=== PATIENT | male | born 1935 | race Caucasian/White ===

== ENCOUNTER 2019-12-07 17:02 | Inpatient (IN) | payer MEDICARE ==
[~2019-12-07] VITALS: Ht 182.9 cm; Wt 60.0 kg
[~2019-12-07 17:02] MED LIST: Prilosec Otc20 MG PO
[2019-12-07 18:32] LABS: International Normalized Ratio 1.18; Prothrombin Time Results 12.5 Sec (9.7-11.5)
[2019-12-07 18:32] LABS: Source, Urine Catheter
[2019-12-07 18:41] LABS: Bilirubin, Urine Neg (Neg); Blood, Urine 5+ (Neg); Glucose Qualitative, Urine 1+ (Neg); Ketones, Urine 4+ (Neg); Leukocyte Esterase, Urine 1+ (Neg); Nitrite, Urine Neg (Neg); Protein, Urine 2+ (Neg); Specific Gravity, Urine 1.015 (1.003-1.022); Urobilinogen, Urine 1+ (Normal)
[2019-12-07 18:42] LABS: Albumin, Blood 3.4 g/dL (3.4-5.0); Albumin/Globulin Ratio 0.9 (0.8-1.8); Bilirubin, Total 1.1 mg/dL (0.1-1.0); Bun/Creatinine Ratio 32.7 (12.0-20.0); Calcium, Blood 9.7 mg/dL (8.5-10.1); Creatinine, Blood 1.56 mg/dL (0.60-1.20); Globulin, Blood 3.6 g/dL (2.2-4.0); Magnesium, Blood 2.6 mg/dL (1.6-2.4); Potassium, Blood 2.7 mmol/L (3.5-5.5); Troponin I 0.025 ng/mL (0.000-0.040)
[2019-12-07 18:47] LABS: Appearance, Urine Hazy (Clear); Color, Urine Amber (P-Yellow)
[2019-12-07 18:50] LABS: Red Blood Cells, Urine 25-50 /hpf (0-2); Squamous Epithelial Cells Not Seen /hpf (Few)
[2019-12-07 18:51] LABS: Bacteria Few /hpf
[2019-12-07 19:30] LABS: Creatine Kinase MB Index 1.6 (0.0-4.0)
[2019-12-07 19:40] LABS: BASOPHILS ABSOLUTE AUTO 0.02 K/mm3 (0.00-0.23); BASOPHILS PERCENT AUTO 0 % (0-2); EOSINOPHILS PERCENT AUTO 0 % (0-6); Hematocrit 40.1 % (37.0-53.0); Hemoglobin 14.2 g/dL (13.5-17.5); IMMATURE GRAN ABSOLUTE AUTO 0.03 K/mm3 (0.00-0.10); IMMATURE GRAN PERCENT AUTO 0 % (0-1); LYMPHOCYTES ABSOLUTE AUTO 0.44 K/mm3 (0.84-5.20); LYMPHOCYTES PERCENT AUTO 5 % (21-46); MONOCYTES ABSOLUTE AUTO 0.71 K/mm3 (0.16-1.47); MONOCYTES PERCENT AUTO 8 % (4-13); Mean Corpuscular HGB Conc 35.4 g/dL (31.5-36.5); Mean Corpuscular Volume 99 fL (80-100); Mean Platelet Volume 10.5 fL (9.1-12.4); NEUTROPHILS ABSOLUTE AUTO 7.47 K/mm3 (1.96-9.15); NEUTROPHILS PERCENT AUTO 86 % (41-73); Platelet Count 124 K/mm3 (150-400); RDW Coefficient Variation 13.6 % (11.7-14.2); RDW Standard Deviation 47.9 fL (35.1-46.3); Red Blood Cell Count 4.06 M/mm3 (4.30-5.90); White Blood Cell Count 8.67 K/mm3 (4.00-11.30)
[2019-12-08 04:28] LABS: BASOPHILS ABSOLUTE AUTO 0.02 K/mm3 (0.00-0.23); BASOPHILS PERCENT AUTO 0 % (0-2); EOSINOPHILS PERCENT AUTO 0 % (0-6); Hematocrit 37.7 % (37.0-53.0); Hemoglobin 13.1 g/dL (13.5-17.5); IMMATURE GRAN ABSOLUTE AUTO 0.02 K/mm3 (0.00-0.10); IMMATURE GRAN PERCENT AUTO 0 % (0-1); LYMPHOCYTES ABSOLUTE AUTO 0.31 K/mm3 (0.84-5.20); LYMPHOCYTES PERCENT AUTO 4 % (21-46); MONOCYTES ABSOLUTE AUTO 0.64 K/mm3 (0.16-1.47); MONOCYTES PERCENT AUTO 8 % (4-13); Mean Corpuscular HGB 34.9 pg (26.0-34.0); Mean Corpuscular HGB Conc 34.7 g/dL (31.5-36.5); Mean Corpuscular Volume 101 fL (80-100); Mean Platelet Volume 11.4 fL (9.1-12.4); NEUTROPHILS ABSOLUTE AUTO 6.71 K/mm3 (1.96-9.15); NEUTROPHILS PERCENT AUTO 87 % (41-73); Platelet Count 141 K/mm3 (150-400); RDW Coefficient Variation 13.6 % (11.7-14.2); RDW Standard Deviation 49.8 fL (35.1-46.3); Red Blood Cell Count 3.75 M/mm3 (4.30-5.90)
[2019-12-08 04:56] LABS: Bun/Creatinine Ratio 32.7 (12.0-20.0); Calcium, Blood 8.5 mg/dL (8.5-10.1); Creatinine, Blood 1.59 mg/dL (0.60-1.20); Potassium, Blood 3.3 mmol/L (3.5-5.5)
--- NOTE | 2019-12-08 07:49 | NUR ---
SUMMARY PT ADMITTED WITH AMS, HE IS ORIENTED TO SELF, SPEECH IS MOSTLY GARBLED, HE IS ABLE TO COMMUNICATE IN SHORT SENTENCES, PT STARTS TO BE COMBATIVE WHEN CARE IS PROVIDED BUT HE WILL CALM DOWN & COOPERATE AFTER CARE IS EXPLAINED AND REORIENTATION IS PROVIDED. NEGATIVE CIWA AT THIS TIME. PT IS ON ROOM AIR, RESP UNLABORED, DARK, DRIED BLOOD NOTED IN PT'S NOSE/MOUTH & FACE. ORAL CARE WAS PROVIDED PER PT'S TOLERANCE, HE DID ACT LIKE IT WAS PAINFUL AT TIMES, UNABLE TO VISUALIZE ANY WOUNDS IN MOUTH DURING ASSESSMENT. MULTIPLE BRUISES NOTED TO BODY, PICTURES WERE NOT OBTAINED DUE TO THE CAMERA NOT WORKING, THIS WAS REPORTED TO THE DAY RN, RIGHT HIP FX PER IMAGING REPORTS, RL ELEVATED ON PILLOW, PEDAL PULSE INTACT, CIRC WNL, PAIN MANAGED PER EMAR X1. NS INFUSING @ 100 ML/HR. BED IN LOW POSITION, BED ALARM ON FOR SAFETY, ROOM CAMERA IS ON. REPORT GIVEN TO DAY RN.
[2019-12-08 12:53] LABS: U Amphetamine Screen Not Detected; U Barbituate Screen Not Detected; U Benzodiazapine Screen Not Detected; U Buprenorphine Screen Not Detected; U Cannabinoids Screen Not Detected; U Cocaine Screen Not Detected; U Methadone Screen Not Detected; U Methamphetamine Screen Not Detected; U Opiates Screen Not Detected; U Oxycodone Screen Not Detected; U Phencyclidine Screen Not Detected; U Propoxyphene Screen Not Detected
--- NOTE | 2019-12-08 19:27 | NUR ---
SHIFT SUMMARY: PT MORE ALERT THIS SHIFT, STILL CONFUSED AND AGITATED, ABLE TO ANSWER QUESTIONS BUT SOMETIMES INAPPROPRIATE. PER DAUGHTER PT IS USUALLY ALERT TO SELF AND TO WHAT'S GOING ON BUT ALSO FORGETFUL AND MAY SOMETIMES REPEAT HIMSELF. PT WAS SEEN BY DR HANSON TODAY REGARDING RIGHT HIP FX, PLAN TO RE-EVALUATE PT AGAIN IN THE MORNING TO DECIDE WHEN TO DO THE SURGERY. CIWA HAS BEEN DONE COUPLE TIMES FOR THE SHIFT, TREMORS WITH MOVEMENTS NOTED PT DENIED NAUSEA AND THIS WAS ADDRESSED TO DR CAMARA WANTED TO TRY ATIVAN FOR NOW, WTIVAN GIVEN X 1 AND WAS EFFECTIVE. TOX SCREEN ALSO CAME BACK NEGATIVE. PAIN MEDS GIVEN X2 FOR THE SHIFT, PT PARTICIPATED WITH THERAPY. PT TO REMAIN NPO FOR NOW, ORAL CLEANING AND SUCTIONING DONE OFTEN. PT RECEIVED A BED BATH WELL. PT CURRENTLY NOW RESTING IN BED REPORT GIVEN TO SOCIAL WORK MSW NURSE
[2019-12-09 03:37] LABS: BASOPHILS ABSOLUTE AUTO 0.01 K/mm3 (0.00-0.23); BASOPHILS PERCENT AUTO 0 % (0-2); EOSINOPHILS PERCENT AUTO 0 % (0-6); Hematocrit 31.7 % (37.0-53.0); Hemoglobin 10.8 g/dL (13.5-17.5); IMMATURE GRAN ABSOLUTE AUTO 0.01 K/mm3 (0.00-0.10); IMMATURE GRAN PERCENT AUTO 0 % (0-1); LYMPHOCYTES ABSOLUTE AUTO 0.55 K/mm3 (0.84-5.20); LYMPHOCYTES PERCENT AUTO 9 % (21-46); MONOCYTES ABSOLUTE AUTO 0.42 K/mm3 (0.16-1.47); MONOCYTES PERCENT AUTO 7 % (4-13); Mean Corpuscular HGB 35.9 pg (26.0-34.0); Mean Corpuscular HGB Conc 34.1 g/dL (31.5-36.5); Mean Corpuscular Volume 105 fL (80-100); Mean Platelet Volume 10.5 fL (9.1-12.4); NEUTROPHILS ABSOLUTE AUTO 5.07 K/mm3 (1.96-9.15); NEUTROPHILS PERCENT AUTO 84 % (41-73); Platelet Count 127 K/mm3 (150-400); RDW Coefficient Variation 14.6 % (11.7-14.2); Red Blood Cell Count 3.01 M/mm3 (4.30-5.90); White Blood Cell Count 6.06 K/mm3 (4.00-11.30)
[2019-12-09 04:00] LABS: Albumin, Blood 2.3 g/dL (3.4-5.0); Anion Gap 8 mmol/L (6-16); Blood Urea Nitrogen 36 mg/dL (8-24); CO2, Blood 21 mmol/L (21-32); Calcium, Blood 7.8 mg/dL (8.5-10.1); Chloride, Blood 116 mmol/L (98-108); Creatinine, Blood 1.03 mg/dL (0.60-1.20); Glomerular Filtration Rate >60 (60-); Glucose, Blood 96 mg/dL (70-99); Phosphorus, Blood 2.6 mg/dL (2.5-4.9); Potassium, Blood 3.6 mmol/L (3.5-5.5); Sodium, Blood 145 mmol/L (136-145)
[2019-12-09 04:10] LABS: CPK Creatine Kinase 1698 U/L (39-308)
--- NOTE | 2019-12-09 06:46 | NUR ---
PT TO RADIOLOGY FOR CT SCAN
--- NOTE | 2019-12-09 09:09 | NUR ---
SUMMARY NO ACUTE CHANGES NOTED THROUGH THE NIGHT. PT WILL PARTIALLY CALL OUT OCCASIONALLY AND IT APPEARS TO BE LIKE HE CRYING BUT HE IS UNABLE TO VOICE ANY REQUESTS, QUICKLY FALLS BACK TO SLEEP, DOES NOT APPEAR TO BE ANXIOUS SHORTLY AFTERWARDS. VSS ARE STABLE, ON ROOM AIR, MILD EDEMA TO RIGHT THIGH, Q2 TURNS, GODINEZ PATENT, PT TO CT THIS AM, 25 MCG IV FENTANYL GIVEN PRIOR TO TRANSPORT, ORAL CARE PROVIDED, NS INFUSED PER EMAR. REPORT GIVEN TO DAY RN. CALL LIGHT IN REACH.
--- NOTE | 2019-12-09 15:39 | NUR ---
SECOND TEMP TAKEN PER OR RNS REQUEST DUE TO PATIENTS COUGHING AND FOLLOW UP SINCE FIRST TEMP TAKEN WICH WAS 99.9, SECOND TEMP 100.3
--- NOTE | 2019-12-09 15:45 | NUR ---
PATIENT RETURNED TO ROOM PCU 3 FLOOR RN NOTIFIED OF SURGERY BEING CANCELLED
--- NOTE | 2019-12-09 18:37 | NUR ---
PT SUMMARY: PT ALERT BUT CONFUSED/AGITATED AT MOST TIMES, ASKS UNRELATED QUESTIONS OFTEN AND REPEATS HIMSELF. PT IS CURRENTLY ON BED REST AND STRICT NPO D/T SWALLOWING ISSUES. PT SCHEDULED TO DO ORTHO SURGERY TODAY BUT WAS CALLED OFF PT HAD LOW GRADE TEMP 99-100F PER REPORT AND WAS COUGHING WITH CRACKLES PER LUNG SOUNDS. PT TEMP UPON RECEIVING BACK IN THE ROOM WAS 99, FENTANYL WAS GIVEN TEMP WENT DOWN TO 98.3, PT WAS C/O OF RIGHT HIP PAIN WELL. DR CAMARA ORDERED CHEST XRAY STAT SHOWS NO SIGNS OF PNEUMONIA, LASIX WAS ORDERED, PT BREATHING WAS A LOT BETTER WITH ADEQUATE AMOUNT OF URINE OUTPUT ON THE CATHETER. DAUGHTER WAS CONTACTED WITH PT'S CURRENT STATUS AND IS AWARE ABOUT THE CANCELLED SURGERY. ATIVAN GIVEN X1 PT HAS BEEN PULLING TELE BOX OFF AND IS CONFUSED/AGITATED. ORAL CARE AND SUCTIONING DONE OFTEN TO CLEAR MUCUS OUT OF THROAT. PT CURRENTLY IN BED WITH CALL LIGHTS WITHIN REACH BED ALARM IS ON, WILL GIVE REPORT TO ONCOMING SHIFT.
--- NOTE | 2019-12-09 22:35 | NUR ---
12/08 @19:35 PATIENT CONFUSED, PULLING AT GODINEZ CATHETER, HAD PREVIOUSLY PULLED ON IV. BOTH LINES OK, DID PERFORM JEANNETTE CARE. CALLED SO ADAMES, OBTAINED ORDER FOR SOFT BILAT WRIST RESTRAINTS TO KEEP PATIENT FROM HARMING SELF. NON-REDIRECTABLE. WILL CALL FAMILY WHEN ABLE TO EDUCATE, PATIENT TOO CONFUSED TO UNDERSTAND PURPOSE. NO C/O PAIN. WILL CONTINUE TO MONITOR.
[2019-12-10 04:19] LABS: BASOPHILS ABSOLUTE AUTO 0.01 K/mm3 (0.00-0.23); BASOPHILS PERCENT AUTO 0 % (0-2); EOSINOPHILS ABSOLUTE AUTO 0.01 K/mm3 (0.00-0.68); EOSINOPHILS PERCENT AUTO 0 % (0-6); Hematocrit 30.5 % (37.0-53.0); IMMATURE GRAN ABSOLUTE AUTO 0.01 K/mm3 (0.00-0.10); IMMATURE GRAN PERCENT AUTO 0 % (0-1); LYMPHOCYTES ABSOLUTE AUTO 0.85 K/mm3 (0.84-5.20); LYMPHOCYTES PERCENT AUTO 14 % (21-46); MONOCYTES ABSOLUTE AUTO 0.53 K/mm3 (0.16-1.47); MONOCYTES PERCENT AUTO 9 % (4-13); Mean Corpuscular HGB 34.7 pg (26.0-34.0); Mean Corpuscular HGB Conc 32.8 g/dL (31.5-36.5); Mean Corpuscular Volume 106 fL (80-100); Mean Platelet Volume 10.8 fL (9.1-12.4); NEUTROPHILS ABSOLUTE AUTO 4.57 K/mm3 (1.96-9.15); NEUTROPHILS PERCENT AUTO 76 % (41-73); Platelet Count 121 K/mm3 (150-400); RDW Coefficient Variation 14.4 % (11.7-14.2); RDW Standard Deviation 55.1 fL (35.1-46.3); Red Blood Cell Count 2.88 M/mm3 (4.30-5.90); White Blood Cell Count 5.98 K/mm3 (4.00-11.30)
[2019-12-10 04:37] LABS: Magnesium, Blood 2.5 mg/dL (1.6-2.4)
[2019-12-10 04:38] LABS: Albumin, Blood 2.2 g/dL (3.4-5.0); Anion Gap 7 mmol/L (6-16); Blood Urea Nitrogen 18 mg/dL (8-24); Bun/Creatinine Ratio 21.9 (12.0-20.0); CO2, Blood 27 mmol/L (21-32); Calcium, Blood 7.7 mg/dL (8.5-10.1); Chloride, Blood 114 mmol/L (98-108); Creatinine, Blood 0.82 mg/dL (0.60-1.20); Glomerular Filtration Rate >60 (60-); Glucose, Blood 103 mg/dL (70-99); Phosphorus, Blood 2.3 mg/dL (2.5-4.9); Potassium, Blood 2.6 mmol/L (3.5-5.5); Sodium, Blood 148 mmol/L (136-145)
--- NOTE | 2019-12-10 05:41 | NUR ---
SHIFT SUMMARY PATIENT SLEPT WELL THROUGH NIGHT. CIWA, ALCOHOL WITHDRAWL SYMPTOMS RELIEVED WITH PRN ATIVAN. DID HAVE 1 SCORE OF 22, BUT WAS MORE EPISODIC, WAS NOT CONSISTENTLY AGITATED/RESTLESS, BUT WOULD GET TO A 22 PRETTY QUICKLY FROM A LOW SCORE, GAVE 2MG IVP ATIVAN, SLEPT FOR ABOUT 5 HOURS. TURNED FREQUENTLY, NOT MUCH DISCOMFORT NOTED, RESOLVED WITH REST. ASSESSMENT IS CHARTED. VSS. WILL CONTINUE TO MONITOR.
--- NOTE | 2019-12-10 09:55 | NUR ---
PT SLEEPING, OCCASIONLLY REPOSITIONING HIS ARM. RESP EVEN AND UNLABORED.
--- NOTE | 2019-12-10 11:22 | NUR ---
PT TO DAY SURGERY AT THIS TIME
--- NOTE | 2019-12-10 12:13 | NUR ---
PT TRANSFERED TO [facility] VIA BED FROM FLOOR. History, Chart, Medications and Allergies reviewed before start of procedure. Lungs clear T/O to Auscultation. Patient confirms NPO status and agrees with scheduled surgery.
--- NOTE | 2019-12-10 13:43 | NUR ---
REPORT TO DRAKE HAMLIN RN TO ASSUME CARE OF PATIENT WHEN PT TRANSFERS FROM SURGERY.
--- NOTE | 2019-12-10 18:00 | NUR ---
REPORT RECEIVED FROM MANAGER MEDICAL DEVICE KIM AT ABOUT 1351
--- NOTE | 2019-12-10 18:01 | NUR ---
POST OP: REPORT RECEIVED FROM PTA. PT TO UNIT AT ABOUT 1515. UPON ASSESSMENT PT IS SLEEPING, VSS. PT OPENS EYES TO VOICE, BUT FALLS BACK TO SLEEP EASILY. TELE PLACED AND VERIFIED, IS NSR AT 88 PER YUNG PSYCHOLOGICAL ANTHROPOLOGIST. DRESSING AT R HIP CDI, CMS INTACT. GODINEZ DRAINING. CONTINIOUS BI OX IN PLACE. PT SHOWS NO SYMPTOMS OF ETOH WITHDRAWAL. BED ALARM ON FOR SAFETY. WILL CTM.
--- NOTE | 2019-12-10 22:00 | NUR ---
TELEMETRY LEADS REPLACED, GOWN/BIOX PUT BACK ON, AND PT REPOSITIONED SELF FOR COMFORT. SAFETY MEASURES IN PLACE. WILL CONTINUE TO MONITOR.
[2019-12-11 04:26] LABS: BASOPHILS PERCENT AUTO 0 % (0-2); EOSINOPHILS PERCENT AUTO 0 % (0-6); Hematocrit 29.2 % (37.0-53.0); Hemoglobin 9.7 g/dL (13.5-17.5); IMMATURE GRAN ABSOLUTE AUTO 0.03 K/mm3 (0.00-0.10); IMMATURE GRAN PERCENT AUTO 0 % (0-1); LYMPHOCYTES ABSOLUTE AUTO 0.37 K/mm3 (0.84-5.20); LYMPHOCYTES PERCENT AUTO 5 % (21-46); MONOCYTES ABSOLUTE AUTO 0.62 K/mm3 (0.16-1.47); MONOCYTES PERCENT AUTO 8 % (4-13); Mean Corpuscular HGB 35.3 pg (26.0-34.0); Mean Corpuscular HGB Conc 33.2 g/dL (31.5-36.5); Mean Corpuscular Volume 106 fL (80-100); Mean Platelet Volume 10.3 fL (9.1-12.4); NEUTROPHILS ABSOLUTE AUTO 6.48 K/mm3 (1.96-9.15); NEUTROPHILS PERCENT AUTO 86 % (41-73); Platelet Count 131 K/mm3 (150-400); RDW Coefficient Variation 14.4 % (11.7-14.2); RDW Standard Deviation 56.2 fL (35.1-46.3); Red Blood Cell Count 2.75 M/mm3 (4.30-5.90)
[2019-12-11 04:52] LABS: Magnesium, Blood 2.1 mg/dL (1.6-2.4)
[2019-12-11 04:54] LABS: Albumin, Blood 2.2 g/dL (3.4-5.0); Anion Gap 5 mmol/L (6-16); Blood Urea Nitrogen 12 mg/dL (8-24); Bun/Creatinine Ratio 19.5 (12.0-20.0); CO2, Blood 27 mmol/L (21-32); Calcium, Blood 7.8 mg/dL (8.5-10.1); Chloride, Blood 113 mmol/L (98-108); Creatinine, Blood 0.62 mg/dL (0.60-1.20); Glomerular Filtration Rate >60 (60-); Glucose, Blood 146 mg/dL (70-99); Phosphorus, Blood 2.7 mg/dL (2.5-4.9); Potassium, Blood 3.8 mmol/L (3.5-5.5); Sodium, Blood 145 mmol/L (136-145)
--- NOTE | 2019-12-11 06:23 | NUR ---
SHIFT SUMMARY LYING SUPINE IN BED WITH EYES CLOSED. AAO X3, CRUZ, FOLLOWS ALL COMMANDS. PAIN MANAGED WITH IVP DILAUDED. INDEPENDENT IN THE ROOM. DENIES FURTHER NEEDS OR WANTS AT THIS TIME. SAFETY MEASURES IN PLACE. WILL GIVE HAND OFF TO ONCOMING SHIFT USING SBAR DURING BEDSIDE REPORT.
--- NOTE | 2019-12-11 06:29 | NUR ---
SHIFT SUMMARY LYING IN LOW FOWLERS WITH EYES CLOSED. AAO X SELF ONLY, CRUZ, FOLLOWS ALL COMMANDS. INTERMITTEN CONFUSION WITH TREMMORS NOTED, TREATED WITH PRN ATIVAN. RIGHT HIP SURGICAL SITE COVERED BY GAUZE AND FOAM TAPE IS C/D/I. IS ABLE TO MOVE KNEE, ANKLE, AND TOES BILATERALLY. DENIES FURTHER NEEDS OR WANTS AT THIS TIME. SAFETY MEASURES IN PLACE. WILL GIVE HAND OFF TO ONCOMING SHIFT USING SBAR DURING BEDSIDE REPORT.
--- NOTE | 2019-12-11 12:51 | NUR ---
PT TO BE STRICTLY NPO PER ST, DR. CAMARA NOTIFIED IF SHE WANTS TO CHANGE METOPROLOL TO IV AND IF PT NEEDS FURTHER ANTICOAGULATION, NO NEW ORDERS RECEIVED, PT IS A LITTLE MORE AWAKE, ALERT ANSWERS QUESTIONS APPOPRIATELY, UNABLE TO WORK W/ PT/OT THIS AM, ICE PACK APPLIED TO R HIP, R HIP DSG CHANGED BY DR. HANSON THIS AM, CONT. TO MONITOR FOR ANY CHANGES.
--- NOTE | 2019-12-11 13:25 | NUR ---
ATTEMPTED TO DO ORAL CARE USING SUCTION AND MANUAL BUT PT IS REFUSING, TURNING HEAD AWAY, PULLING MOUTH SWAB AWAY AND BECOMING COMBATIVE.
--- NOTE | 2019-12-11 15:23 | NUR ---
REFUSED ORAL CARE AT THIS TIME, PT BECOMING CONFUSED, ORIENTED TO SELF, PULLING AT IV LINES AND GOWN, NOTICED TO HAVE MORE MOIST NPC, DR. CAMARA AWARE, PRIVATE BANKER CONCERNED ABOUT PT NOT HAVING ANY SUPPLEMENTAL NUTRITION AT THIS TIME, DR. CAMARA ALSO NOTIFIED, NO NEW ORDERS RECEIVED, CONT. TO MONITOR FOR ANY CHANGES.
[2019-12-12 04:50] LABS: Hematocrit 34.7 % (37.0-53.0); Hemoglobin 11.4 g/dL (13.5-17.5); Mean Corpuscular HGB 35.1 pg (26.0-34.0); Mean Corpuscular HGB Conc 32.9 g/dL (31.5-36.5); Mean Corpuscular Volume 107 fL (80-100); Mean Platelet Volume 11.3 fL (9.1-12.4); NRBC ABSOLUTE 0.02 K/mm3 (0.00-0.02); NRBC Auto 0.4 /100 WBC (0.0-0.2); Platelet Count 166 K/mm3 (150-400); RDW Coefficient Variation 14.5 % (11.7-14.2); RDW Standard Deviation 56.2 fL (35.1-46.3); Red Blood Cell Count 3.25 M/mm3 (4.30-5.90); White Blood Cell Count 5.28 K/mm3 (4.00-11.30)
[2019-12-12 05:58] LABS: Albumin, Blood 2.2 g/dL (3.4-5.0); Anion Gap 4 mmol/L (6-16); Blood Urea Nitrogen 11 mg/dL (8-24); Bun/Creatinine Ratio 22.9 (12.0-20.0); CO2, Blood 29 mmol/L (21-32); Calcium, Blood 7.7 mg/dL (8.5-10.1); Chloride, Blood 110 mmol/L (98-108); Creatinine, Blood 0.48 mg/dL (0.60-1.20); Glomerular Filtration Rate >60 (60-); Glucose, Blood 106 mg/dL (70-99); Phosphorus, Blood 2.4 mg/dL (2.5-4.9); Potassium, Blood 3.7 mmol/L (3.5-5.5); Sodium, Blood 143 mmol/L (136-145)
--- NOTE | 2019-12-12 06:40 | NUR ---
POD 2 S/P R EUGENIO HIP REPAIR. PT VSS, HR SINUS TACH 90'S PER TELE MONITOR. DRESSING INTACT, NO CHANGES IN DRNG OR SWELLING. CIWA MAX 13, PT MEDICATED W/1MG ATIVAN W/NOTED EFFECTS. PT REMAINS CONFUSED, AGITATED AND RESTLESS, UNABLE TO MAKE NEEDS KNOWN. PT NPO PER ORDERS, IVF CONT. ORAL CARE PROVIDED OFTEN PT ALEK, NO GAG REFLEX NOTED. PT REPOSITIONED FREQ, DOES SHIFT SELF SLIGHTLY. BED ALARM ON FOR SAFETY. WILL CONT TO MONITOR UNTIL REP GIVEN TO ONCOMING RN.
--- NOTE | 2019-12-12 09:19 | NUR ---
12/12/19 0919 Kenia Bennett VERIFICATIONS: EDIT CHART.
--- NOTE | 2019-12-12 17:55 | NUR ---
SUMMARY PT MORE ALERT TODAY, OOB TO RECLINER CHAIR TODAY W/ PT/OT, CONTIUES TO BE NPO, MANUAL ORAL CARE DONE TODAY, LASIX X1 TODAY, TPN STARTED, CONTINUES TO HAVE MOIST, NPC DR. CAMARA AWARE, PULLS AT TELE WIRES AND GOWN OCCASSIONALLY,APPEARS TO BE LESS ANXIOUS TODAY THAN YESTERDAY, CONFUSED AND NOT ORIENTED TODAY, PT REORIENTED T/O SHIFT, ASKING "WHAT HAPPENED TO ME?" SPEECH CONTINUES TO BE GARBLED BUT MORE COMPREHENSIBLE TODAY, NO ACUTE CHANGES THIS SHIFT.
[2019-12-13 06:04] LABS: Hematocrit 30.3 % (37.0-53.0); Hemoglobin 10.2 g/dL (13.5-17.5); Mean Corpuscular HGB 35.4 pg (26.0-34.0); Mean Corpuscular HGB Conc 33.7 g/dL (31.5-36.5); Mean Corpuscular Volume 105 fL (80-100); Mean Platelet Volume 10.7 fL (9.1-12.4); Platelet Count 145 K/mm3 (150-400); RDW Coefficient Variation 13.9 % (11.7-14.2); RDW Standard Deviation 53.1 fL (35.1-46.3); Red Blood Cell Count 2.88 M/mm3 (4.30-5.90); White Blood Cell Count 5.21 K/mm3 (4.00-11.30)
[2019-12-13 06:25] LABS: Anion Gap 4 mmol/L (6-16); Blood Urea Nitrogen 13 mg/dL (8-24); Bun/Creatinine Ratio 20.5 (12.0-20.0); CO2, Blood 31 mmol/L (21-32); Calcium, Blood 7.7 mg/dL (8.5-10.1); Chloride, Blood 103 mmol/L (98-108); Creatinine, Blood 0.64 mg/dL (0.60-1.20); Glomerular Filtration Rate >60 (60-); Glucose, Blood 98 mg/dL (70-99); Phosphorus, Blood 3.3 mg/dL (2.5-4.9); Potassium, Blood 3.5 mmol/L (3.5-5.5); Sodium, Blood 138 mmol/L (136-145); Triglycerides 92 mg/dL (30-160)
--- NOTE | 2019-12-13 06:36 | NUR ---
SHIFT SUMMARY: YESENIA IS ALERT. HIS SPEECH IS GARBELED AND, AT TIMES, NONSENSICAL. OCCASIONALLY, HE IS ABLE TO BE UNDERSTOOD. IV TO L AC PATENT, PPN INFUSING. GODINEZ DRAINING DARK, YELLOW URINE. HE IS ADVERSE TO BEING MOVED. CIWA Q4 THIS SHIFT. ATIVAN GIVEN X 2. ORAL CARE DONE, MOUTH WITH SIGNIFICANT SLOUGHING. TELE IN PLACE, ALTHOUGH YESENIA PULLS AT THE LEADS FREQUENTLY. FENTANYL FOR PAIN. HE IS STRICT NPO, SUCTIONING WITH ORAL CARE. HE DOES NOT USE HIS CALL LIGHT. PAS AND ANJELICA HOSE IS PLACE. CONTINUOUS PULSE OX IN PLACE. DRESSINGS C/D&I. WILL REPORT TO DAY SHIFT RN.
--- NOTE | 2019-12-13 15:32 | NUR ---
SHIFT SUMMARY NO ACUTE CHANGES THIS SHIFT. PT DID HAVE SOME HTN THIS AFTERNOON, BUT IS RECEIVING SCHEDULED LOPRESSOR AND IS TRENDING DOWN. TELE IN PLACE RUNNING IN SINUS. PT DOES GET ANXIOUS OCCASSIONALLY. CIWA HAS BEEN AROUND 8. 1MG IV ATIVAN GIVEN PER ORDERS. PT DID FAIL SPEECH THERAPY AGAIN. REMAINS NPO AND PPN STILL INFUSING PER ORDERS. PT STILL HAVING GARBLED SPEECH, BUT DOES OCCASSIONALLY SPEAK CLEAR SHORT PHRASES. PT DID REPORT RIGHT HIP PAIN AND RECEIVED 25MCG IV FENTANYL WHICH SEEMS TO BE EFFECTIVE. AQUACEL DRESSING TO HIP REMAINS CDI. PT DID HAVE A FULL BEDBATH TODAY AND HAS BEEN REPOSITIONED TOLERATED. ORAL CARE PER ORDERS. BED ALARM IN PLACE R/T TO CONFUSION FOR SAFETY. CALL LIGHT WITHIN REACH.
--- NOTE | 2019-12-13 17:04 | NUR ---
RECIEVED REPORT FROM OTHER RN [place]., THIS RN TAKING OVER CARE AT THIS TIME.
--- NOTE | 2019-12-14 04:48 | NUR ---
SHIFT SUMMARY: ANISHA AROUSES EASILY, IS ORIENTED TO SELF. HE IS COMBATIVE WITH CARE AT TIMES. HE DOES DISPLAY PAIN BEHAVIOR WITH MOVEMENT. PPN RUNNING TO 22G IN R FA. ORAL CARE AND REPOSITIONING TOLERATED. COCCYX REDDENED. STRICT NPO. GODINEZ PATENT. HE DOES NOT USE HIS CALL LIGHT. VSS. NO ACUTE EVENTS OVERNIGHT. WILL REPORT TO DAY SHIFT RN.
[2019-12-14 05:11] LABS: Hematocrit 26.6 % (37.0-53.0); Hemoglobin 9.1 g/dL (13.5-17.5); Mean Corpuscular HGB 35.5 pg (26.0-34.0); Mean Corpuscular HGB Conc 34.2 g/dL (31.5-36.5); Mean Corpuscular Volume 104 fL (80-100); Mean Platelet Volume 10.8 fL (9.1-12.4); Platelet Count 156 K/mm3 (150-400); RDW Coefficient Variation 13.9 % (11.7-14.2); Red Blood Cell Count 2.56 M/mm3 (4.30-5.90); White Blood Cell Count 5.82 K/mm3 (4.00-11.30)
[2019-12-14 05:42] LABS: Albumin, Blood 1.8 g/dL (3.4-5.0); Anion Gap 6 mmol/L (6-16); Blood Urea Nitrogen 15 mg/dL (8-24); Bun/Creatinine Ratio 25.5 (12.0-20.0); CO2, Blood 27 mmol/L (21-32); Calcium, Blood 7.4 mg/dL (8.5-10.1); Chloride, Blood 101 mmol/L (98-108); Creatinine, Blood 0.59 mg/dL (0.60-1.20); Glomerular Filtration Rate >60 (60-); Glucose, Blood 98 mg/dL (70-99); Phosphorus, Blood 3.2 mg/dL (2.5-4.9); Potassium, Blood 3.9 mmol/L (3.5-5.5); Sodium, Blood 134 mmol/L (136-145)
--- NOTE | 2019-12-14 09:45 | NUR ---
DR CAMARA HERE TO SEE PT. DISCUSSED BOWEL CARE.
--- NOTE | 2019-12-14 16:47 | NUR ---
SHIFT SUMMARY PT BEEN NPO. PT HAS GODINEZ IN PLACE. PT WORKED WITH THERAPY AND WAS NOT ABLE TO GET UP TO CHAIR. PT DID HAVE BM TODAY. PT BEEN REPOSITIONED MULT TIMES TODAY. MEPILEX WAS PLACED TO BOTTOM IT WAS SLIGHTLY REDDENNED BUT NO OPEN SORES NOTED. NO SORES TO HEELS. HEELS BEEN FLOATED. ALARM IN PLACE. MOUTH CARE COMPLETED MULT TIMES. NO S/SX OF W/D NOTED TODAY. PT CONT TO BE CONFUSED.
[2019-12-15 05:04] LABS: Albumin, Blood 1.9 g/dL (3.4-5.0); Anion Gap 4 mmol/L (6-16); Blood Urea Nitrogen 18 mg/dL (8-24); Bun/Creatinine Ratio 31.8 (12.0-20.0); CO2, Blood 29 mmol/L (21-32); Calcium, Blood 7.5 mg/dL (8.5-10.1); Chloride, Blood 101 mmol/L (98-108); Creatinine, Blood 0.57 mg/dL (0.60-1.20); Glomerular Filtration Rate >60 (60-); Glucose, Blood 98 mg/dL (70-99); Phosphorus, Blood 3.4 mg/dL (2.5-4.9); Potassium, Blood 4.4 mmol/L (3.5-5.5); Sodium, Blood 134 mmol/L (136-145)
--- NOTE | 2019-12-15 06:03 | NUR ---
SHIFT SUMMARY: YESENIA AROUSES EASILY AND FOLLOWS COMMANDS MOST OF THE TIME. HE IS ORIENTED TO PERSON. HE DID HAVE AN EPISODE OF AGITATION AND ANXIETY DURING WHICH HE REPEATELY STATED "I'VE HAD A GOOD LIFE, IT'S TIME NOW". PER THE CHART, HE HAS REFUSED WORKUP FOR LUNG NODULES AND HAD REQUESTED TO BE A DNR. PALLIATIVE CARE CONSULT MAY BE APPROPRIATE. ORAL CARE PROVIDED TOLERATED, PT IS UNABLE TO CLEAR SECRETIONS. HE IS STRICT NPO. PPN RUNNING TO IV IN R FA. HE DOES NOT USE HIS CALL LIGHT. GODINEZ DRAINING DEBRA URINE. ATTENDS IN PLACE. BED ALARM ON. WILL REPORT TO DAY SHIFT RN.
--- NOTE | 2019-12-15 09:31 | NUR ---
DR CAMARA IN TO SEE PT. DISCUSSED DARK, TARRY STOOL W/DR. JORI LOUISE AT THIS POINT.
--- NOTE | 2019-12-15 10:17 | NUR ---
ASSISTED STIVEN BORJAS WITH CARE OF PATIENT. THIS RN NOTICED THE AREA ON THE RIGHT ELBOW/FOREARM TO BE SWOLLEN AND RED. IV STOPPED INFUSING AND INDIO NOTIFIED. IV DC'D/ NEW IV PLACEMENT TO LEFT WRIST.
--- NOTE | 2019-12-15 10:29 | NUR ---
SPEECH THERAPY IN TO SEE PT.
--- NOTE | 2019-12-15 12:51 | NUR ---
Spoke with nursing, Radha RN, and Craig, PT. Craig reports that pt did a little better with PT today than he did last Sunday. Radha states pt remains a two person max assist. Radha also reported that speech therapy evaluated pt again this morning and pt failed the swallow eval for the 4th day in a row. Pt is currently receiving IV nutrition. Edilson was medicated with IV fentanyl at the time of my visit. Nursing LM for Dr. Maxwell re: failed swallow eval again today. Need to speak with pt's dtr to give her an update once PC RN speaks with MD. PC RN LM for MD to contact PC office. If Dr. Maxwell has already spoken with dtr today, will not call dtr but will remain available.
--- NOTE | 2019-12-15 13:19 | NUR ---
OCCUPATIONAL THERAPY IN TO SEE PT.
[2019-12-15 15:45] LABS: Hematocrit 30.2 % (37.0-53.0); Hemoglobin 10.3 g/dL (13.5-17.5)
--- NOTE | 2019-12-15 16:35 | NUR ---
Rec'd a call from Dr. Maxwell. She reports she spoke with pt's dtr, Luiza, and that Luiaz had questions re: comfort care and options for discharging. Had an hour long conversation with pt's dtr. Explained current comorbities, dysphagia and answered her questions. She was tearful but states her dad told her on the phone today "I'm getting old, my body is wearing out." She reports that her dad has never said anything like that before. Edilson has an AD which states no tube feeding according to Luiza. Luiza states she wants to respect his wishes and will transition him to comfort care. She stated that if by some miracle he was able to swallow without difficulty again, she would consider stopping comfort care and continuing with rehab. She states she knows this would likely never happen, but she states she is hoping for a miracle. She lost her mother on hospice services about 18 months ago. Luiza states she has been in contact with [employer] re: Medicaid and is waiting for a call back from them. She states her dad has some money which could be used if he needs to have real time trader caregivers at home or if he needs to go into some type of foster home or GROUP HOME with hospice services. She states she lives in [place] farm and is leary of traveling but states that if her dad is dying she would want to say goodbye. Explored options of communicating with him via phone. She would be interested in using [employer] if this would be possible. Encouraged Luiza to call nurse staff to check in and get an update on her dad. Spoke with Dr. Maxwell who requested that this caption writer place comfort care orders. Spoke with Radha, pt's RN, and updated her on change to comfort care. Pt's IV nutrition will be discontinued once the current bag is completed. Dr. Maxwell requested to dc all other routinely scheduled medications and keep only prn meds needed for comfort. PC will continue to follow.
--- NOTE | 2019-12-15 17:19 | NUR ---
SUMMARY NO ACUTE CHANGES THIS SHIFT. PT HAD TWO BMS. GODINEZ CATH DRAINING SUAREZ YELLOW URINE. THERAPY ATTEMPTED TO WORK W/PT BUT PT HAD DIFFICULTY FOLLOWING DIRECTIONS. MEDICATED PER ORDERS FOR PAIN AND AGITATION LATE THIS AM. PT MADE COMFORT CARE THIS EVENING. RESTING IN BED, REPORTED FELT COLD, PLACED BLANKET FOR WARMTH. CALL LIGHT IN REACH. BED ALARM ON.
--- NOTE | 2019-12-15 18:19 | NUR ---
MEDICATED PT PER ORDERS W/ROXANOL. ASSISTED W/TV. PT DECLINED ORAL CARE. PROVIDED EXTRA BLANKET FOR COMFORT.
--- NOTE | 2019-12-15 20:00 | NUR ---
RECEIVED HAND OFF FROM Anjel COMBS RN USING SBAR DURING BEDSIDE REPORT. LYING IN SEMI FOWLERS WITH EYES OPEN. PT IS COMFORT CARE TODAY. ORIENTED TO SELF, REORIENTED TO ROOM, CALL SYSTEM, AND POC. STATES, "I'M SO TIRED, I JUST WANT TO SLEEP. EVEN IF IT IS JUST FOR AN HOUR OR SO, I JUST WANT TO SLEEP." NURSING PROVIDED PRN ATIVAN TO HELP PT REST PER REQUEST. REPOSITIONED FOR COMFORT. DENIES FURTHER NEEDS AT THIS TIME. SAFETY MEASURES IN PLACE. WILL CONTINUE TO MONITOR.
--- NOTE | 2019-12-15 22:00 | NUR ---
C/O PAIN AND NEEDING REST. REPOSITIONED FOR COMFORT, AND GIVEN PRN PAIN AND ANXIETY MEDS. SAFETY MEASURES IN PLACE. WILL CONTINUE TO MONITOR.
--- NOTE | 2019-12-16 | NUR ---
C/O PAIN, BUT REFUSED ORAL CARE OFFERED. STATES THAT HIS MOUTH HURTS. REPOSITIONED FOR COMFORT, AND GIVEN PRN PAIN AND EXCESS SECRETION MEDS. SAFETY MEASURES IN PLACE. WILL CONTINUE TO MONITOR.
--- NOTE | 2019-12-16 02:00 | NUR ---
C/O PAIN, BUT REFUSED ORAL CARE. REPOSITIONED FOR COMFORT, AND GIVEN PRN PAIN AND SECRETION MEDS. SAFETY MEASURES IN PLACE. WILL CONTINUE TO MONITOR.
--- NOTE | 2019-12-16 04:00 | NUR ---
DENIES PAIN, AND REFUSED ORAL CARE. REPOSITIONED FOR COMFORT. SAFETY MEASURES IN PLACE. WILL CONTINUE TO MONITOR.
--- NOTE | 2019-12-16 05:19 | NUR ---
SHIFT SUMMARY NO ACUTE CHANGES NOTED THIS SHIFT. HAS RESTED WITH COMFORT WITH 10MG ROXINOL AND ATROPINE. SECRETIONS LESSENED, PAIN MANAGED, REPOSITIONED THROUGH OUT SHIFT. DENIES FURTHER NEEDS AT THIS TIME. SAFETY MEASURES IN PLACE. WILL GIVE HAND OFF TO ONCOMING SHIFT USING SBAR DURING BEDSIDE REPORT.
--- NOTE | 2019-12-16 08:25 | NUR ---
PT SLEEPING. CRIED OUT WITH REPOSITIONING AND THEN QUICKLY RETURNED TO SLEEP. DOES NOT APPEAR TO BE IN ANY DISTRESS AT THIS TIME.
--- NOTE | 2019-12-16 12:32 | NUR ---
ATTEMPTED TO PERFORM ORAL CARE. PAINFUL FOR PT. REPOSITIONED TO L SIDE. NOW SLEEPING.
--- NOTE | 2019-12-16 15:59 | NUR ---
PT'S DAUGHTER, KAYLAH, SPEAKING TO PT ON PHONE.
--- NOTE | 2019-12-16 17:03 | NUR ---
Initial spiritual care note: Mr. Alejo was alone in room and non-responsive. Dtr in [facility] Pt appears comfortable and well cared-for by nursing. I sat with him twice today, providing presence of love and silent prayer. I will remain available.
--- NOTE | 2019-12-16 17:44 | NUR ---
REPOSITIONED PT TO R SIDE FOR COMFORT. REPORTS NO PAIN AT THIS TIME. SWABBED MOUTH W/MAGIC MOUTHWASH FOR COMFORT.
--- NOTE | 2019-12-16 20:00 | NUR ---
RECEIVED HAND OFF FROM Anjel COMBS RN USING SBAR DURING BEDSIDE REPORT. LYING IN SEMI FOWLERS WITH EYES OPEN. PT IS COMFORT CARE. ORIENTED TO SELF, REORIENTED TO ROOM, CALL SYSTEM, AND POC. MOANING FREQUENTLY, DENIES PAIN, BUT ACCEPTED OFFERED PAIN MEDS. REPOSITIONED FOR COMFORT. DENIES FURTHER NEEDS AT THIS TIME. SAFETY MEASURES IN PLACE. WILL CONTINUE TO MONITOR.
--- NOTE | 2019-12-16 20:32 | NUR ---
pt seen today minimally verbal states not to aches and pains, no nausea or headache breathing non labored. some increased secretions advised to stop fluids if it continues. Pt mouth red and sore not tolerating oral care, order recieved for magic mouthwash for comfort.
--- NOTE | 2019-12-17 04:32 | NUR ---
SHIFT SUMMARY NO ACUTE CHANGES NOTED THIS SHIFT, CONTINUING WITH COMFORT CARE. HAS RESTED COMFORTABLY WITH 10MG ROXINOL AND REPOSITIONING PRN THROUGH OUT SHIFT. DENIES FURTHER NEEDS AT THIS TIME. SAFETY MEASURES IN PLACE. WILL GIVE HAND OFF TO ONCOMING SHIFT USING SBAR DURING BEDSIDE REPORT.
--- NOTE | 2019-12-17 11:43 | NUR ---
NOTIFIED BY EQUIPMENT MECHANIC SPECIALIST THAT PATIENT WOULD L;CINDY PAIN MEDICATION. TO PATIENTS ROOM AND PATIENT REPORTS SOME PAIN BUT DECLINES PAIN MEDS. CALL LIGHT IN REACH AND INSTRUCTED PATIENT TO CALL ME IF HE WOULD LIKE PAIN MEDS.
--- NOTE | 2019-12-17 12:26 | NUR ---
PT DECLINES ORAL CARE OR PAIN MEDICATION AT THIS TIME. TV ON PER PATIENT REQUEST. PT DECLINES LUNCH TRAY OR OFFER OF FLUIDS
--- NOTE | 2019-12-17 17:14 | NUR ---
1547 PAIN PT RESTLESS REPORTS BACK AND RIGHT HIP PAIN, MOANING, ALSO REPEATEDLY STATES I HAVE TO PEE, PT PULLING AT GODINEZ. MEDICATED WITH ROXANOL
--- NOTE | 2019-12-17 17:15 | NUR ---
1630 CONTINUES RESTLESS, YELLING OUT "I HAVE TO PEE" GODINEZ CATHETER REMOVED PER PROTOCOL 6A. PT STATES FEELING ANXIOUS AND NERVOUS IM HALDOL GIVEN
--- NOTE | 2019-12-17 17:51 | NUR ---
SUMMARY REPORTED HUNGER TO PALLATIVE CARE RN. WILMA OBTAINED AND WHEN I ENTERED ROOM PT DECLINES FOOD OR FLUID. ORAL CARE GIVEN AND PT REPOSITIONED. PT HAS DECLINED FOOD OR FLUIDS THIS SHIFT. OCC OIST COUGH WTHOUT PRODUCTION. PT MEDICATED X3 FOR BACK AND RIGHT HIP PAIN. PT COOPERATIVE AT TIMES IS ORIENTED TO PERSON, PLACE AND FAMILY AND AT TIMES CONFUSED STATEMENTS AND ASKS TO GET DRESSED SO HE CAN GO TO WORK
--- NOTE | 2019-12-17 18:31 | NUR ---
Routine spiritual care note: Mr. Alejo was awake today, but weak and confused. He did not know why he is hospitalized and told me he is worried about where he is "going to live now." He was in pain, and I informed RN. He denied haviong any support from friends/family, and he appeared fearful. I sat beside him, providing assurance of care, gentle counseling department chair, and encouragement. He is unaware he is nearing end of life. He is also not gnosticism. I will remain available.
--- NOTE | 2019-12-17 18:38 | NUR ---
spoke with patients daughter. per daughter she just spoke with her dad by phone and she stated he was much more lucid today than yesterday
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
--- NOTE | 2019-12-18 06:50 | NUR ---
PT RESTING COMFORTABLY WITH EYES CLOSED.
--- NOTE | 2019-12-18 06:51 | NUR ---
PT RESTING WITH EYES CLOSED. REPOSITIONED. ATTENDS DRY. ALLOWED ORAL CARE.
--- NOTE | 2019-12-18 06:52 | NUR ---
PT REPOSITIONED. CALMS WHEN TALKING [facility] STAFF. DENIES PAIN MEDS AT THIS TIME.
--- NOTE | 2019-12-18 08:06 | NUR ---
SHIFT SUMMARY: YESENIA IS ON COMFORT CARE. HE DID NOT WISH TO TAKE IN ANYTHING PO THIS SHIFT. HE WAS MEDICATED PER THE MAR FOR BACK PAIN, TURNED AND REPOSITIONED. ORAL CARE PROVIDED HE ALLOWED. ATTENDS CLEAN AND DRY. NYSTATIN APPLIED TO RASH. PT IS UP IN THE BEDSIDE RECLINER. HE DOES NOT USE THE CALL LIGHT. HE IS ORIENTED TO PERSON, OTHERWISE CONFUSED. WILL REPORT TO DAY SHIFT RN.
--- NOTE | 2019-12-18 08:44 | NUR ---
Comfort Care Visit Pt resting in recliner with his eyes closed. Pt appears comfortabler with no S/S of distress at this time. Spoke with Bedside RN Marisela and discussed case. Marisela is requesting Ativan for anxiety and Benadryl for itchy rash. Spoke with Dr Smith, discussed case, and medication request. Placed order for Bendadryl 25mg PO ever 6 hours PRN, and Ativan 0.5mg tp 1mg PO every 4 hours PRN per V/O from Dr Smith. Spoke with Caremanmichael Alexander and discussed case. Plan is to find placement on hospice. Palliative Care will remain available.
--- NOTE | 2019-12-18 16:01 | NUR ---
Pt resting in recliner chair with his eyes closed. Pt appears comfortable with with no S/S of distress at this time. Spoke with Caremanager Catherine and discussed case. Catherine reports Pt's daughter is requesting a phone call. Called and spoke with Pt's daughter Luiza. Offered therapeutic listening. Listened as Luiza expresses concerns regarding whether Pt is appropriate for comfort care and hospice. Listened as Luiza reports having a conversation with Pt and his furniture restorer approximately one year ago when he was completing his advanced directive. Luiza reports Pt expressed that he would not want a feeding tube and would want to focus on quality of life if ever in a situation where he could not swallow safely or care for himself. Luiza discusses conversation she had with hospitalist several days ago and was told he was not at end of life. Discussed the difference between being immenent and being appropriate for end of life care. Educated on Pt's current condition and him being appropriate for comfort care and hospice if she feels this is Pt's wishes. Luiza expresses appreciation of phone call and states she feels better with decision. Luiza reports no other concerns at this time. Instructed Luiza to call Palliative Care with any other questions or concerns. Palliative Care will remain available.
--- NOTE | 2019-12-18 17:56 | NUR ---
SHIFT SUMMARY PT A&OX1, VSS, POD8 R EUGENIO HIP, AQUACEL D/I. PAIN & DISCOMFORT MANAGED WITH TYLENOL AND 0.5 MG ATIVAN. BENADRYL & NYSTATIN GIVEN FOR RASH. UP TO CHAIR T/O SHIFT. ALEK MECH SOFT DIET W/DYSPHAGIA PREC, LOW PO INTAKE, ENJOYS ENSURE SHAKES; ORAL CARE PROVIDED T/O SHIFT; MEDS WITH APPLESAUCE. WILL REPORT TO ONCOMING ROMEO SALEEM.
--- NOTE | 2019-12-18 21:20 | NUR ---
YESENIA WAS PUT BACK TO BED FROM THE RECLINER CHAIR WITH TWO PERSON ASSISTANCE. ATTENDS CHANGED, NYSTATIN POWDER APPLIED. REPOSITIONED WTIH PILLOWS, WARM BLANKETS APPLIED. 3 SIDE RAILS UP.
--- NOTE | 2019-12-19 03:11 | NUR ---
PT RESTING QUIETLY WITH SNORING RESPIRATIONS.
--- NOTE | 2019-12-19 03:12 | NUR ---
PT RESTING COMFORTABLY WITH SNORING RESPIRATIONS.
--- NOTE | 2019-12-19 03:15 | NUR ---
ATTENDS CHANGED, CREAM APPLIED. PT REPOSITIONED, MOUTH MOISTENED AT PT'S REQUEST. BENADRYL GIVEN D/T PT'S COMPLAINT OF ITCHING. HOB ELEVATED TO 55 DEGREES TO AID IN SWALLOWING.
--- NOTE | 2019-12-19 04:59 | NUR ---
YESENIA STATES THAT HE IS TRYING TO DECIDE WHICH BRANCH OF THE TO GO WITH, AND WHICH CABLE PROVIDER TO CHOOSE. HE DENIES PAIN. REPOSITIONED SUPINE.
--- NOTE | 2019-12-19 07:27 | NUR ---
SHIFT SUMMARY: YESENIA RESTED INTERMITTENTLY. HE HAS HAD TWO LOOSE BOWEL MOVEMENTS. HE DOES NOT USE HIS CALL LIGHT. NYSTATIN APPLIED TO RASH. ATTENDS IN PLACE. BED ALARM ON, 3 SIDE RAILS UP. REPORT TO DAY SHIFT RN.
--- NOTE | 2019-12-19 14:14 | NUR ---
RECEIVED REPORT FROM EMMA BENCH CARPENTER, AT 1413. PATIENT TO TRANSFER TO ROOM 346
--- NOTE | 2019-12-19 14:29 | NUR ---
Pt resting in bed upon arrival. Pt appears anxious and confused. Changed Pt's television channel per request from Pt. Spoke with bedside STIVEN Antonio, discussed case, and reviewed comfort medications. Palliative Care will remain available.
--- NOTE | 2019-12-19 14:50 | NUR ---
SHIFT SUMMARY PT CONFUSED, MEDS GIVEN PER JOSUE RODRIGUEZ LIQ BMS TODAY, DYSPHAGIA PREC, ORAL CARE PROVIDED, MECH SOFT, NECTOR THICK LIQ W/SPOON. PT TRANSFER TO SCU. REPORT GIVEN TO ANN-MARIE SALEEM.
--- NOTE | 2019-12-19 15:05 | NUR ---
PATIENT JUST ARRIVED FROM SURGICAL FLOOR TO ROOM 346. COMFORT CARE ASSESSMENT COMPLETED. ATTENDS ARE CLEAN AND DRY.
[2019-12-19 16:46] LABS: Source, Urine Catheter
--- NOTE | 2019-12-19 16:49 | NUR ---
PATIENT REMAINS ON COMFORT CARE. PATIENT NOTED TO HAVE A BUMPY RASH TO HIS ENTIRE CHEST AND A DARK RED RASH TO HIS GROIN AREA. PATIENT NOTED TO BE PULLING AT HIS BRIEF AND PULLING IT OFF. HE WAS NOTABLY AGGITATED. PATIENT WAS BLADDER SCANNED AND >999cc OF URINE IN BLADDER INDICATED. DR PEÑA CALLED BY MARILY, PALLIATIVE CARE RN, TO INFORM HER AND NEW ORDERS FOR GODINEZ CATH TO BE PLACED GIVEN. GODINEZ BAG THREADED THROUGH PANTS TO ATTEMPTED TO DETER PATIENT FROM PULLING AT IT. COMFORT CARE CHECKS CONTINUE ON PATIENT. BARRIER CREAM APPLIED TO GROIN. WILL CONTINUE TO MONITOR AND PROVIDE CARE TO PATIENT.
[2019-12-19 16:53] LABS: Bilirubin, Urine Neg (Neg); Blood, Urine 4+ (Neg); Glucose Qualitative, Urine Neg (Neg); Ketones, Urine 2+ (Neg); Leukocyte Esterase, Urine 1+ (Neg); Nitrite, Urine Neg (Neg); Protein, Urine 1+ (Neg); Urobilinogen, Urine NORM (Normal)
[2019-12-19 16:59] LABS: Appearance, Urine Clear (Clear); Color, Urine Amber (P-Yellow)
[2019-12-19 17:04] LABS: Bacteria Few /hpf; Red Blood Cells, Urine 0-2 /hpf (0-2); Squamous Epithelial Cells Not Seen /hpf (Few); White Blood Cells, Urine 0-2 /hpf (0-5)
--- NOTE | 2019-12-19 19:41 | NUR ---
case confrence for symtoms suggest bladder routine bladderscan and increased oral care
--- NOTE | 2019-12-19 19:59 | NUR ---
PATIENT WAS PULLING AT PANTS AND TRYING TO PULL HIS BLANKETS OFF SAYING THAT HE WANTED TO HELP KEEP "HER" WARM. THIS NURSE TOLD HIM THAT "SHE" WAS TAKEN CARE OF AND THAT HE NEEDED TO KEEP WARM HIMSELF. ASSISTED THE PATIENT TO CALL HIS DAUGHTER AND THEY ARE CURRENTLY TALKING.
--- NOTE | 2019-12-19 20:46 | NUR ---
PATIENT WAS UNDRESSING AND TRYING TO PULL AT HIS CATHETER AND TRYING TO TAKE HIS ATTENDS OFF AFTER TALKING TO HIS DAUGHTER. PATIENT MEDICATED FOR ANXIETY AND JEANNETTE CARE, ATTENDS CHANGE AND CATH CARE PERFORMED.
--- NOTE | 2019-12-19 22:01 | NUR ---
PATIENT PULLING BLANKET AND PANTS OFF AGAIN AND SCRATCHING AT BODY. HE WAS BREATHING HEAVILY AND SHOWED SIGNS OF POSSIBLY BEING IN PAIN. PATIENT MEDICATED PER EMAR FOR ITCHING AND PAIN. PANTS TURNED AROUND BACKWARDS TO DETER HIM FROM PULLING AT HIS CATHETER.
--- NOTE | 2019-12-20 00:43 | NUR ---
PATIENT WAS BEGINNING TO STIR FROM HIS SLEEP AND SHOWING SOME SIGNS OF PAIN. PATIENT MEDICATED PER EMAR FOR PAIN AND REPOSITIONED IN BED.
--- NOTE | 2019-12-20 01:27 | NUR ---
PATIENT IS NOW SLEEPING WITH NO SIGNS OF PAIN OR ANXIETY. HIS RESPIRATION ARE SLOW AND SHALLOW, BUT REGULAR.
--- NOTE | 2019-12-20 02:44 | NUR ---
PATIENT SLEEPING BUT MOANING AND SHIFTING IF HE IS IN PAIN. MEDICATED PER EMAR FOR PAIN. PATIENT IS HAVING INCREASED SECRETIONS AND IS COUGHING. ORAL SUCTION AT BEDSIDE WHICH IS HELPING.
--- NOTE | 2019-12-20 03:47 | NUR ---
PATIENT APPEARED TO BE HAVING DIFFICULTY BREATHING, SECRETIONS POSSIBLY CONTRIBUTING TO THE ISSUE. ANALYTICAL CHEMIST SUCTIONED PATIENT, THIS RN ADMINISTERED ATROPINE AND ELEVATED THE HEAD OF HIS BED MORE TO HELP. HE ALSO WAS SHOWING SIGNS OF PAIN BY SHIFTING AND MOANING. PATIENT MEDICATED PER EMAR FOR PAIN.
--- NOTE | 2019-12-20 04:24 | NUR ---
PATIENT SEEMS COMFORTABLE NOW AND IS SLEEPING. HE IS BREATHING EASIER BUT STILL HAS SECRETIONS.
--- NOTE | 2019-12-20 05:39 | NUR ---
PATIENT MOANING AND HAVING RESPIRATORY SECRETIONS. PATIENT MEDICATED PER EMAR FOR PAIN AND SECRETIONS.
--- NOTE | 2019-12-20 06:37 | NUR ---
SHIFT SUMMARY PATIENT WAS PAINFUL AND AGGITATED AT THE BEGINNING OF THE SHIFT. PATIENT MEDICATED PER EMAR TO HELP GET BOTH UNDER CONTROL. AFTER A FEW HOURS HE WAS ABLE TO CALM DOWN AND GET COMFORTABLE. PATIENT BEGAN HAVING DIFFICULTY BREATHING AND HAD ORAL SECRETIONS. ORAL SUCTION PLACED AT BEDSIDE AND PATIENT MEDICATED WITH ATROPINE. HE IS LESS ALERT NOW THAN HE WAS AT THE BEGINNING OF THE SHIFT. BED IN LOWEST POSITION WITH WHEELS LOCKED. CALL LIGHT WITHIN REACH. REPORT GIVEN TO ONCOMING RN.
--- NOTE | 2019-12-20 09:48 | NUR ---
PATIENT IS RESTING COMFORTABLY IN BED. BRIEF DRY, GODINEZ DRAINING TO GRAVITY.
--- NOTE | 2019-12-20 13:57 | NUR ---
PATIENT CONTINUES TO REST COMFORTABLY IN BED. BRIEF CDI, GODINEZ DRAINING TO GRAVITY.
--- NOTE | 2019-12-20 17:42 | NUR ---
A DECLINE IN PATIENTS STATUS APPEARS TO HAVE OCCURED SINCE YESTERDAY. PATIENT HAS BEEN SLEEPING ALL DAY, BECAME RESTLESS ONCE THIS EVENING AND WAS MEDICATED WITH EFFECTIVENESS. THE PATIENT IS NOTED TO HAVE AN INCREASE IN SECRETIONS AND HAS BEEN GIVEN ATROPINE AND SUCTIONED NEEDED. GODINEZ IS PATENT AND DRAINING TO GRAVITY, ATTENDS REMAINS CDI. PATIENTS DAUGHTER CALLED EARLIER AND GIVEN AN UPDATE ON PATIENT. WILL CONTINUE TO MONITOR AND PROVIDE CARE TO PATIENT NEEDED.
--- NOTE | 2019-12-20 19:07 | NUR ---
PATIENT SLEEPING COMFORTABLY IN HIS BED. NO SIGNS OF PAIN OR DIFFICULTY BREATHING. PATIENT IS HAVING SLOW EVEN BREATHS.
--- NOTE | 2019-12-20 20:29 | NUR ---
Comfort Care: Pt appears comfortable. No s/s of distress, no secretions noted. Meds and chart reviewed.
--- NOTE | 2019-12-20 21:16 | NUR ---
PATIENT REPOSITIONED. HE WAS MOANING AND GRIMACING IN PAIN, PATIENT MEDICATED PER EMAR FOR PAIN. HE IS ALSO HAVING RESPIRATORY SECRETIONS, PATIENT MEDICATED PER EMAR. HE IS STARTING TO HAVE SOME EPISODES OF APNEA WHEN BREATHING.
--- NOTE | 2019-12-21 01:20 | NUR ---
CATHETER CARE COMPLETED. PATIENT REPOSITIONED. LINENS/GOWN/ATTENDS CHANGED. PATIENT MEDICATED FOR PAIN PER EMAR.
--- NOTE | 2019-12-21 05:59 | NUR ---
PATIENT MOANING AND SHIFTING IF HE IS IN PAIN. PATIENT MEDICATED PER EMAR. BREATHING IS SLOWING AND MORE SHALLOW WITH INCREASED PERIODS OF APNEA.
--- NOTE | 2019-12-21 06:13 | NUR ---
SHIFT SUMMARY PATIENT IS NOT ALERT AND RESPONDS ONLY TO PAIN STIMULUS. PATIENT MEDICATED PER EMAR FOR PAIN AND RESPIRATORY SECRETIONS. HIS BREATHING IS BECOMING MORE SLOW AND SHALLOW WITH PERIODS OF APNEA. BED IN LOWEST POSITION WITH WHEELS LOCKED. CALL LIGHT WITHIN REACH. REPORT GIVEN TO ONCOMING RN.
--- NOTE | 2019-12-21 11:03 | NUR ---
COMFORT: PATIENT CONTINUES TO MOAN OCCASIONALLY. PATIENT IS NOW RESTING WITHOUT TWITCHING LIMBS. MEDICATED PER PRNS. PATIENT IS HAVING APNEIC PERIODS OF ABOUT 4-8 SECONDS.DAUGHTER IS AWARE OF CHANGES. HELD THE PHONE FOR THE PATIENT SO THAT THE DAUGHTER WAS ABLE TO SPEAK WITH HER FATHER. PATIENT'S EYES OPENED WIDE WHEN SHE SAID HIS NAME.
--- NOTE | 2019-12-21 14:43 | NUR ---
DAUGHTER PHONE CALL: PATIENT NOW HAVING APNEIC PERIODS UP TO 15-20 SECONDS. NOTIFIED PATIENT'S DAUGHTER OF CHANGES TO BREATHING PATTERN. DAUGHTER CALLED INTO THE ROOM SO THAT SHE COULD SPEAK WITH THE PATIENT AGAIN. MEDICATED PER PRNS FOR AIR HUNGER.
--- NOTE | 2019-12-21 16:31 | NUR ---
COMFORT AND APNEA: PATIENT APPEARS COMFORTABLE. NO MOANING. BROW IS SMOOTH. APNEIC PERIODS ARE NOW AROUND 20 SEC.
--- NOTE | 2019-12-21 19:09 | NUR ---
END OF SHIFT SUMMARY: CONTROLLED PATIENT PAIN, DYSPNEA AND SECRETIONS WITH PRNS (SEE EMAR). BY THE END OF SHIFT, PATIENT HAD APNEIC PERIODS UP TO 25 SECONDS. PATIENT'S DAUGHTER ABLE TO SPEAK WITH HIM VIA PHONE TWICE. DAUGHTER EXPRESSED DEEP GRATITUDE. PATIENT'S EYES OPENED WIDE DURING INITIAL CONVERSATION. BY THE SECOND CONVERSATION, PATIENT HAD MINIMAL CHANGE TO FACIAL EXPRESSIONS DURING HER SPEAKING. PATIENT'S EXTREMITIES REMAINED WARM AND FREE OF MOTTLING. PATIENT WOULD MOAN ON EXHALE AND TWITCH SHOULDERS WHEN PAINFUL.
--- NOTE | 2019-12-21 19:34 | NUR ---
pt more frail, resting will review oral care with staff.
--- NOTE | 2019-12-21 19:42 | NUR ---
PATIENT NOT AROUSABLE. HAVING SOME JERKING MOVEMENTS OF HIS MUSCLES. PERIODS OF APNEA ARE LASTING UP TO 33 SECONDS LONG.
--- NOTE | 2019-12-21 19:59 | NUR ---
PATIENT'S DAUGHTER CALLED. THIS RN INFORMED HER OF THE PATIENT'S MOST RECENT CONDITION.
--- NOTE | 2019-12-21 21:12 | NUR ---
DIAGNOSTIC TECHNICIAN REPOSITIONED PATIENT AND PERFORMED ORAL CARE
--- NOTE | 2019-12-21 22:58 | NUR ---
PATIENT GRIMACING AND TWITCHING IF HE WAS IN PAIN, MEDICATED PER EMAR FOR PAIN. MEDICATED PER EMAR FOR RESPIRATORY SECRETIONS WELL HIS RESPIRATORY EFFORT WAS INCREASED. PATIENT REPOSITIONED.
--- NOTE | 2019-12-22 02:05 | NUR ---
PATIENT DOES NOT SEEM TO BE IN PAIN OR HAVING TROUBLE BREATHING. PERIODS OF APNEA ARE LASTING UP TO 35 SECONDS. PATIENT IS NON-RESPONSIVE.
--- NOTE | 2019-12-22 03:45 | NUR ---
PATIENT REPOSITIONED. ATTENDS CHANGED AND CATHETER CARE COMPLETED. IGNITION MECHANIC PERFORMED ORAL CARE ON THE PATIENT. PATIENT WAS MEDICATED PER EMAR FOR PAIN/AIR HUNGER.
--- NOTE | 2019-12-22 04:16 | NUR ---
PATIENT SEEMS TO BE MORE COMFORTABLE AND IS HAVING LESS RESPIRATORY EFFORT WHEN BREATHING SINCE RECEIVING PRN ROXANOL.
--- NOTE | 2019-12-22 05:37 | NUR ---
SHIFT SUMMARY PATIENT UNRESPONSIVE ALL NIGHT. HAVING JERKING MOVEMENTS WITH HIS MUSCLES. BREATHING PATTERN IS RANDOM WITH SOME SHALLOW AND SOME DEEP BREATHS WITH PERIODS OF APNEA BETWEEN RANGING FROM 10-35 SECONDS. PATIENT HAS BEEN TREATED WITH MEDICATIONS PER EMAR. BED IN LOWEST POSITION WITH WHEELS LOCKED. CALL LIGHT WITHIN REACH. REPORT GIVEN TO ONCOMING RN.
--- NOTE | 2019-12-22 07:28 | NUR ---
pt appears to be comfortable at this time, breaths are 6-8/min, talked with the pts' daughter Celsa
--- NOTE | 2019-12-22 08:39 | NUR ---
PT APPEARS MORE RESTLESS AND GRIMICING, REPOSTIIONED THE PT AND GAVE MORPHINE 20MG
--- NOTE | 2019-12-22 11:51 | NUR ---
pt showing signs of progression, extensive oral care by staff and did oral care on pt. masoud spoke with family. updated nursing supervisor coremaker that pt is porgressing in case family needs to come in.
--- NOTE | 2019-12-22 11:59 | NUR ---
PT APPEARS TO BE COMFORTABLE AT THIS TIME, MORPHINE AND ATIVAN GIVEN EARLIER, MPOUTH CARE WAS GIVEN EARLIER ALSO
--- NOTE | 2019-12-22 14:40 | NUR ---
PT REPOSTIONED ADDITIONAL MOUTH CARE PROVIDED, PT APPEASRS TO BE COMFORTABLE
--- NOTE | 2019-12-22 17:20 | NUR ---
PT MEDICATED WITH MORPHINE AND ATIVAN FOR COMFORT, PALLIATIVE CARE RN TO SEE THE PT AND TALKING OVER THE PHONE WITH THE PTS DAUGHTER
--- NOTE | 2019-12-22 18:06 | NUR ---
PT APPEARS TO BE COMFORTABLE AT THIS TIME, THE PT IS VERY APNIC, THE PT WAS MEDICATED FOR DYSPNEA T/O THE DAY, THE PT WAS REPOSTIONED, MOUTH CARE WAS PROVIDED T/O THE DAY, CALL LIGHT IN REACH, WILL CONTINUE TO MONITOR AND ASSESS FOR CHANGES
--- NOTE | 2019-12-22 18:43 | NUR ---
PT progressing having longer periods of apnea. frequent oral care. and nursing medicating for burdensome ventilation. Daughter contacted and put the phone up to patient so she can speak with him. pt opened his eyes wider and respirations increased in deepness for a few moments. Daughter lives out of state and is not healthy so she is isolating for protection from pandemic. She asked if he had any belongings. pt had some urine soaked jeans in a bad with a wallet in his pocket. wallet had his lisence and credit card no gonzalez. his medical cards and few club cards pt did not have any other belongings or jewlery. Reviewed belongings with daughter on phone and bedside nurse. bagged wallet and reported it to nursing terminal supervisor and sent to [employer] to lock up. Will give ticket to pt advocate so wallet can be shipped so daughter can arrange funneral. [facility] shift lead nurse notified and reviewed his symptoms and prn med needs.
--- NOTE | 2019-12-22 20:08 | NUR ---
MEDICATING FOR DYSPNEA WITH ROXINOL PER DC ELEVATOR EXAMINER AND ADJUSTER REQUEST. RESPS AGONAL WITH PAUSES.
--- NOTE | 2019-12-23 05:32 | NUR ---
84 year old Male with closed hip fx continues on comfort measures. PT nonverbal eyes open most of shift. Agonal respiration with frequent pauses. Continues to have helpful effect of roxinol 20 mg SL several times & ativan 0.5 mg x 1 sl. Edentulous, oral care given several times. DTR lives out of state no calls or visits from family tonight.
--- NOTE | 2019-12-23 10:46 | NUR ---
Pt resting in bed and is minimally responsive. Pt's respirations mildly labored. Pt does not respond verbally but does flail his arms and head briefly when spoken to. Pt appears mildly anxious. Spoke with Bedside STIVEN Hawthorne and discussed case. Reviewed comfort care medicaitons. Palliative Care will remain available.
--- NOTE | 2019-12-23 17:48 | NUR ---
SUMMARY PT RESTING QUIETLY IN BED, IS ON COMFORT CARE, SPOKE WITH THE DAUGHTER ON THE PHONE, PT MED PER EMAR FOR COMFORT, PT DOES HAVE PERIODS OF APNEA, WILL CONT TO MONITOR
--- NOTE | 2019-12-23 19:58 | NUR ---
PT continues with agonal respirations eyes mostly closed today, withdrawn, comfortable on comfort care. DTR Celsa called and I held phone to Edilson's ear for about 10 mins as she is our of state. PT still warm transitioning with periods of apnea. Color sallow, mouth dry will use lemon glycerin swabs. King output minimal. PT's wallet has been mailed to DTR out of state. Support offered. Frequequent checks on PT, cares channel playing soft music.
--- NOTE | 2019-12-24 10:00 | NUR ---
PAL CARE COMFORT CARE VISIT AND CASE CONFERENCE WITH RN DONE. Pt unresponsive to voice and touch. He had Roxinol before 8 am this morning. He is having shallow, slow, agonal breathing with periods of apnea every couple of breaths. Pt appears peaceful and comfortable. No nonverbal indicators of pain, anxiety or distress noted. RN has been in contact with pt's daughter in [place] to give her an update already this morning. Pal care to remain available.
--- NOTE | 2019-12-24 17:24 | NUR ---
SUMMARY PT RESTING QUIETLY IN BED, ON COMFORT CARE, MED PER EMAR FOR COMFORT, SPOKE WITH THE DAUGHER ON THE PHONE, PALLIATIVE CARE HAS BEEN IN TO VISIT, PT APPEARS COMFORTABLE, WILL CONT TO MONITOR
--- NOTE | 2019-12-24 17:43 | NUR ---
Mr. Alejo was non-responsive and appeared to be nearing end-of-life. No signs of discomfort or distress noted. Nursing taking excellent care of him. Sat at bedside for awhile, talking to him and comforting. I will remain available.
--- NOTE | 2019-12-25 03:39 | NUR ---
FELT CHECKER SUMMARY PT IS UNRESPONSIVE. APPEARED TO BE IN NO DISTRESS TONIGHT. APNEIC BREATHING SPELLS. FREQUENT REPOSITIONING AND ORAL CARE PROVIDED. GODINEZ PATENT AND DRAINING DARK URINE. LOWER EXTREMETIES COOL TO TOUCH. END OF LIFE SEEMS TO BE NEAR. WILL CONTINUE TO MONITOR.
--- NOTE | 2019-12-25 14:42 | NUR ---
Comfort Care Visit Pt resting in bed and is unresponsive. Periods of apnea noted lasting 10 to 12 seconds. Pt appears comfortable with no S/S of distress at this time. Offered gentle touch and voice. Palliative Care will remain available.
--- NOTE | 2019-12-25 17:54 | NUR ---
PT ON COMFORT CARE, BREATHING CHANGES NOTED THIS AFTERNOON, APNIC PERIODS INCREASING IN LENGTH. PT'S DAUGHTER CALLED AND INFORMED, SHE IS PLANNNG ON ARRIVING EARLY IN THE MORNING. WILL CONTINUE TO MONITOR AND REPORT TO ONCOMING RN
--- NOTE | 2019-12-25 18:36 | NUR ---
Routine spiritual care note: Mr. Alejo's breathing was noticably changed today. His breathing is apnec with 12-15 second pauses. He is non-responsive to voice or touch, and appears well cared-for by nursing. Silent prayer provided at bedside. Spoke to him of forgiveness and love. I will remain available.
--- NOTE | 2019-12-25 20:44 | NUR ---
12/25/191999 SLEEPING WITHOUT RESP. DISTRESS. ORAL CARE GIVEN WITH SWABS AND LIP OINTMENT. REPOSITIONED AFTER ASSESSMENT DONE. TRANQUIL MUSIC FROM TV ON.
--- NOTE | 2019-12-25 23:19 | NUR ---
12/25/19 2315 RN NOTED DURING ROUNDS THAT PT IS HAVING CHRISTOPHER-BURNETT RESPIRATIONS. NO DISCOMFORT NOTED.
--- NOTE | 2019-12-25 23:56 | NUR ---
12/25/19 2355 ROUNDS MADE AND PATIENT REPOSITIONED TO OTHER SIDE. ORAL CARE GIVEN. NO DISCOMFORT OR DISTRESS NOTED. GODINEZ PATENT AND DRAINING WELL--DARK DEBRA URINE. OCC. OPENS EYES WHEN CARE IS GIVEN. NON-VERBAL AT THIS TIME.
--- NOTE | 2019-12-26 05:03 | NUR ---
12/26/19 0500 PT RESTING COMFORTABLY WITHOUT EVIDENCE OF DISTRESS OR DISCOMFORT. ATTENDS CHANGED EVEN THOUGH IT WAS DRY WITH JEANNETTE-CARE GIVEN. ORAL CARE WITH SWABS AND LIP MOISTURIZER WITH REPOSITIONING. OCC.OPENS EYES WHEN CARE GIVEN. OCC.INCOMPREHENSIBLE SPEECH. ORAL SUCTIONING DONE BUT VERY LITTLE SECRETIONS.
--- NOTE | 2019-12-26 08:25 | NUR ---
PT IN NO APPARENT DISTRESS. FAMILY IN ROOM. HERBERT Huddleston AND DRAIN ING. WCTM.
--- NOTE | 2019-12-26 09:51 | NUR ---
PT IN NO APPARENT DISTRESS. NO SOB/SECRETIONS. NO FAMILY PRESENT. WCTM.
--- NOTE | 2019-12-26 10:43 | NUR ---
MEDICATED FOR PAIN PER EMAR. NO DYSPNEA/SOB/SECRETIONS. NO FAMILY PRESENT. WCTM.
--- NOTE | 2019-12-26 11:25 | NUR ---
Comfort Care Visit Pt resting in bed with his eyes closed. Assisted Bedside RN Roque in repositioning Pt. Pt non responsive. Pt appears comfortable with no S/S of distress at this time. 10 to 12 second periods of apnea noted. Palliative Care will remain available.
--- NOTE | 2019-12-26 12:17 | NUR ---
PT IN NO APPARENT DISTRESS. NO DYSPNEA/SOB/SECRETIONS. NO FAMILY PRESENT. WCTM.
--- NOTE | 2019-12-26 13:32 | NUR ---
medicated for pain per emar. no dyspnea/sob/secretions. no family present. wctm.
--- NOTE | 2019-12-26 14:44 | NUR ---
PT IN NO APPARENT DISTRESS. NO DYSPNEA/SOB/SECRETIONS. NO FAMILY PRESENT. WCTM.
--- NOTE | 2019-12-26 16:19 | NUR ---
MEDICATED FOR PAIN PER EMAR. NO DYSPNEA/SOB/SECRETIONS. NO FAMILY PRESENT. WCTM.
--- NOTE | 2019-12-26 16:56 | NUR ---
MEDICATED FOR SECRETIONS PER EMAR. NO FAMILY PRESENT. WCTM.
--- NOTE | 2019-12-26 17:53 | NUR ---
Routine spiritual care note: Edilson is non-responsive, breaths shallow. His hands/arms were cool to touch. He appears in no distress. Prayer and presence provided. [employer] Supervisor services will remain available.
--- NOTE | 2019-12-26 18:36 | NUR ---
COMFORT CARE ASSESSMENT: PT IN NO APPARENT DISTRESS. NO DYSPNEA/SOB/SECRETIONS. NO FAMILY PRESENT. WCTM.
--- NOTE | 2019-12-26 18:41 | NUR ---
SHIFT SUMMARY: NO ACUTE CHANGES TO REPORT THIS SHIFT. MEDICATED FOR PAIN & SECRETIONS PER EMAR. GODINEZ CATHETER IN PLACE; PATENT AND DRAINING. ONE VISITOR (DAUGHTER) IN TO SEE PATIENT THIS SHIFT. COMFORT CARE MEASURES CONTINUING. WCTM.
--- NOTE | 2019-12-27 00:03 | NUR ---
Scopalomine patch placed behind left ear. Patient does not appear to be painful since 10 mg dose roxynol dose around 2100. Breathing mary jo kendrick with pauses up to 20 seconds. Atropine given at HS also with little result. Partially due to fact that patient's neck hyperextended on pillow and staff unabe to straighten out. Emotional support and comfort offered frequently.
--- NOTE | 2019-12-27 04:43 | NUR ---
COMFORT: PATIENT IS MOANING, BODY IS TENSE AND PATIENT IS HAVING PERIODS OF APNEA CAUSING AIRHUNGER. POOR EFFECT FROM ROXANOL, PRN ATIVAN IS GIVEN.
--- NOTE | 2019-12-27 05:53 | NUR ---
AFTER SCHOOL CAREGIVER SUMMARY Patient continued to breath erraticaly through the night. Scopalomine patch worked well to ease secretions. Roxynol given with Ativan around 0400 for signs of increasing discomfort and anxiety. Patient responded well to combination of medications. Minimal output of 50ml overnight of eleazar clear urine from dorsey catheter. Patient appears to be more comfortable to be Floated between two pillows, rather than propped up from side to side. Especially to lay on his right side.
--- NOTE | 2019-12-27 07:36 | NUR ---
PATIENT HAVING APENIC BREATHING EPISODES. APPEARS COMFORTABLE.
--- NOTE | 2019-12-27 09:22 | NUR ---
BED BATH WITH PLANT MANAGER GIVEN. APENIC BREATHING. CHANGED NYSTATIN TO PRN.
--- NOTE | 2019-12-27 11:39 | NUR ---
PATIENT SLEEPING. JEANNETTE CARE PROVIDED. NO YEAST NOTED. NYSTATIN ORDER CHANGED TO PRN.
--- NOTE | 2019-12-27 14:14 | NUR ---
PATIENT SLEEPING. APPEARS COMFORTABLE. PALLIATIVE CARE CAME BY.
--- NOTE | 2019-12-27 15:41 | NUR ---
Comfort Care: Pt appears comfortable at time of visit. No concerns from nursing. Pt actively dying phase, progressing slowly. Will remain available.
--- NOTE | 2019-12-27 16:57 | NUR ---
SHIFT SUMMARY PATIENT CONTINUES TO HAVE APENIC BREATHING. REPOSITIONED AND BED BATH GIVEN TODAY. NO ACUTE CHANGES.
--- NOTE | 2019-12-27 18:35 | NUR ---
NOTED PATIENT TO BE MOTTLING. BREATHING DIFFERENT. EYES NOT RESPONDING TO VOICE. CALLED DAUGHTER TO NOTIFY CHANGE IN CONDITION. THIS RN LISTENED SHE TEARED UP ON THE PHONE. SHE TALKED WITH HER DAD AGAIN ON THE PHONE.
--- NOTE | 2019-12-27 20:18 | NUR ---
Patient at 1943. Daughter Celsa was informed. ([phone]) Family would like to use [facility] in [place]. Their number is as follows. [phone].
--- NOTE | 2019-12-27 20:49 | NUR ---
CALLED PT'S DAUGHTER ROSA DE SANTIAGO AND CONFIRMED THAT SHE RECIEVED HIS W[employer]LETT, SHE STATES THAT YES SHE RECIEVED IT VIA [employer]. ALSO LET HER KNOW HE HAD A WATCH THAT WILL BE GOING WITH HIM TO THE HOME AND THAT THEY WOULD CONTACT HER TOMORROW AND SHE COULD FIND OUT FROM THEM HOW TO GET HIS WATCH.
== END 2019-12-27 19:48 | DRG 956 ==
LOC: ER 17:02 → PCU 22:19 → SURS 12-10 12:25 → MEDS 12-19 14:44
PROVIDERS: Emergency Medicine; Internal Medicine; Orthopaedic Surgery; ADMIT Family Medicine
PROC: 0SRR0JZ Replacement of Right Hip Joint, Femoral Surface with Synthetic Substitute, Open Approach (ICD-10-PCS; principal; 2019-12-10 11:45)
DX: S72.031A Displaced midcervical fracture of right femur, initial encounter for closed fracture (principal); S06.359A Traumatic hemorrhage of left cerebrum with loss of consciousness of unspecified duration, initial encounter; G92 Toxic encephalopathy; J69.0 Pneumonitis due to inhalation of food and vomit; J96.01 Acute respiratory failure with hypoxia; E87.1 Hypo-osmolality and hyponatremia; E87.2 Acidosis; K92.2 Gastrointestinal hemorrhage, unspecified; N17.9 Acute kidney failure, unspecified; C34.31 Malignant neoplasm of lower lobe, right bronchus or lung; C77.9 Secondary and unspecified malignant neoplasm of lymph node, unspecified; Z51.5 Encounter for palliative care; D69.6 Thrombocytopenia, unspecified; E83.39 Other disorders of phosphorus metabolism; E86.0 Dehydration; E87.6 Hypokalemia; E87.70 Fluid overload, unspecified; I10 Essential (primary) hypertension; R13.10 Dysphagia, unspecified; T68.XXXA Hypothermia, initial encounter; W19.XXXA Unspecified fall, initial encounter; Z87.891 Personal history of nicotine dependence; F03.90 Unspecified dementia, unspecified severity, without behavioral disturbance, psychotic disturbance, mood disturbance, and anxiety; F10.20 Alcohol dependence, uncomplicated; Z66 Do not resuscitate; T79.6XXA Traumatic ischemia of muscle, initial encounter; R40.2362 Coma scale, best motor response, obeys commands, at arrival to emergency department; R40.2142 Coma scale, eyes open, spontaneous, at arrival to emergency department; R40.2242 Coma scale, best verbal response, confused conversation, at arrival to emergency department
CPT/HCPCS: 36415; 51702; 70450; 71045; 72170; 73502; 80048; 80053; 80069; 81001; 81241; 82550; 82553; 82947; 83605; 83735; 84145; 84478; 84484; 85014; 85018; 85025; 85027; 85610; 87040; 87086; 88305; 88311; 92526; 92610; 93005; 93010; 94640; 94760; 94762; 96361-59; 96365-59; 96366-59; 96367-59; 96368; 96375-59; 97110; 97116; 97163; 97167; 97530; 97535; 99285-25; A9270-GY; C1776; C9113; G0480; J0171; J0690; J0696; J0735; J1630; J1650; J1885; J1940; J2060; J2370; J2405; J2543; J2704; J2710; J2795; J3010; J3370; J3411; J3475; J3480; J7030; J7042; J7060; J7120; Q0163